=== PATIENT | female | born 1980 | race Caucasian/White ===

== ENCOUNTER 2019-11-01 08:16 | Day surgery (SDC) | payer BC ==
[2019-10-23 11:57] LABS: BASOPHILS # (AUTO) 0.1 X10'3 (0-0.2); EOSINOPHILS # (AUTO) 0.4 X10'3 (0-0.9); EOSINOPHILS % (AUTO) 6.6 % (0-6); LYMPHOCYTES # (AUTO) 1.8 X10'3 (1.1-4.8); LYMPHOCYTES % (AUTO) 31.8 % (21-51); MEAN CORPUSCULAR HEMOGLOBIN 32.1 PG (27.0-31.0); MEAN CORPUSCULAR HGB CONC 34.4 g/dL (33.0-36.5); MEAN CORPUSCULAR VOLUME 93.3 FL (78-98); MEAN PLATELET VOLUME 9.6 FL (7.4-10.4); MONOCYTES # (AUTO) 0.5 X10'3 (0-0.9); MONOCYTES % (AUTO) 9.5 % (2-12); NEUTROPHILS # (AUTO) 2.8 X10'3 (1.8-7.7); NEUTROPHILS % (AUTO) 51.1 % (42-75); PRE OP HEMATOCRIT 42.5 % (35.0-45.0); PRE OP HEMOGLOBIN 14.6 g/dL (12.0-16.0); PRE OP PLATELET COUNT 253 X10'3 (140-440); RED BLOOD COUNT 4.55 X10'6 (4.20-5.60); RED CELL DISTRIBUTION WIDTH 13.1 % (11.5-14.5)
[2019-10-23 12:05] LABS: ALBUMIN 3.6 G/DL (3.4-5.0); ALKALINE PHOSPHATASE 60 IU/L (46-116); BLOOD UREA NITROGEN 8 MG/DL (7-18); BUN/CREATININE RATIO 8.8 (6.6-38.0); CALCIUM 8.2 MG/DL (8.5-10.1); CHLORIDE 102 MMOL/L (99-107); CREATININE 0.91 MG/DL (0.40-0.90); PRE OP ALT 19 U/L (30-65); PRE OP ANION GAP 5 (8-16); PRE OP AST 15 U/L (10-37); PRE OP BILIRUB, TOTAL 0.9 MG/DL (0.0-1.0); PRE OP POTASSIUM 4.2 MMOL/L (3.4-5.1); PRE OP SODIUM 135 MMOL/L (135-145); TOTAL CARBON DIOXIDE 27.8 MMOL/L (24-32); TOTAL PROTEIN 7.2 G/DL (6.4-8.2); eGFR 69 ML/MIN
[2019-10-23 13:11] LABS: PRE OP GLUCOSE 498 MG/DL (70-104)
[~2019-11-01] VITALS: Ht 166.4 cm; Wt 68.0 kg
[2019-11-01] VITALS (7 sets, daily range): BP systolic 111–136; BP diastolic 67–86
[~2019-11-01 08:16] MED LIST: [UNRECOGNIZED DRUG - OTHER]; ceFOXitin sod/dextrose 2g/50ml 50 ML IV ONE; famotidine 10mg tablet PO ONE; ringers solution, lacted 1,000 ML IV SCH
[2019-11-01] MEDS ORDERED: ferric subsulfate solution/paste 1 APPLIC SOL.W.APPL TP ONE (09:31)
[2019-11-01] MEDS ORDERED: ringers solution, lacted 1,000 ML IV SCH (10:07)
[2019-11-01] MEDS ORDERED: ketorolac trometh. 30mg/ml inj. IV ONE (10:10)
[2019-11-01] MEDS ORDERED: ondansetron/PF 4mg/2ml inj IV PRN (10:10)
[2019-11-01] MEDS ORDERED: meperidine/PF 25mg/ml syringe IV PRN ×3 (10:10)
[2019-11-01] MEDS ORDERED: proCHLORperazine 10 MG/2 ml inj IV PRN (10:10)
[2019-11-01] MEDS ORDERED: sevoflurane 250ml liquid IH ONE (10:30)
[2019-11-01] MEDS ORDERED: midazolam 2 mg/2 ml injection ONE (10:40)
[2019-11-01] MEDS ORDERED: fentaNYL/PF 50MCG/1 ML 2ML syringe ONE (10:40)
[2019-11-01] MEDS ORDERED: propofol inj 20 ML IV ONE (10:41)
[2019-11-01] MEDS ORDERED: ondansetron/PF 4mg/2ml inj ONE (11:14)
--- NOTE | 2019-11-01 11:35 | NUR ---
Received from OR via [facility] , accompanied by Anesthesiologist JESSICA and report given by Anesthesiolgist. PATIENT WITH 20G PIV IN RIGHT UE RUNNING LR AT 100. DENIES PAIN AT THIS TIME. PATIENT WITH 10L MASK ON WITH 100% SATURATIONS. PATIENT WITH ANIBAL PAD THAT IS CDI. Addendum: 11/01/19 at 1146 by Cooper Garcia RN, RN Amended: Links added.
[2019-11-01] MEDS ORDERED: oxyCODONE/APAP 5-325mg tablet PO ONE (11:45)
[2019-11-01] MEDS ORDERED: oxyCODONE/APAP 5-325mg tablet PO PRN (11:45)
--- NOTE | 2019-11-01 12:35 | NUR ---
ALL DC CRITERIA HAS BEEN MET. IV TAKEN OUT WITHOUT COMPLICATIONS. ALL INSTRUCTIONS COVERED AND ALL QUESTIONS ANSWERED. DRESSINGS CDI. OUT VIA WHEELCHAIR TO PERSONAL VEHICLE WHERE PATIENT WAS SECURED IN AND DRIVEN HOME BY FAMILY. Addendum: 11/01/19 at 1242 by Cooper Garcia RN, RN Amended: Links added.
== END 2019-11-01 12:35 | disposition home or self-care (01) ==
LOC: PAS 08:16
PROVIDERS: ATTEND Obstetrics & Gynecology
DX: N92.0 Excessive and frequent menstruation with regular cycle (principal); D06.9 Carcinoma in situ of cervix, unspecified; F41.9 Anxiety disorder, unspecified; F32.9 Major depressive disorder, single episode, unspecified; G43.909 Migraine, unspecified, not intractable, without status migrainosus; E10.39 Type 1 diabetes mellitus with other diabetic ophthalmic complication; H42 Glaucoma in diseases classified elsewhere; E10.22 Type 1 diabetes mellitus with diabetic chronic kidney disease; N18.1 Chronic kidney disease, stage 1; Z88.5 Allergy status to narcotic agent; Z88.8 Allergy status to other drugs, medicaments and biological substances; Z98.51 Tubal ligation status; Z79.4 Long term (current) use of insulin; Z79.899 Other long term (current) drug therapy; F17.210 Nicotine dependence, cigarettes, uncomplicated; Z98.890 Other specified postprocedural states
CPT/HCPCS: 36415; 57522; 58563; 80053; 82948; 85025; 86885; 86900; 86901; A4264; J0694; J1885; J2175; J2250; J2405; J2704; J3010; J7030; A4355; A4618; A6258; A7000; J7120

== ENCOUNTER 2021-06-11 21:21 | Emergency (ER) | payer BC ==
[~2021-06-11] VITALS: Ht 167.6 cm; Wt 65.9 kg
[~2021-06-11 21:21] MED LIST changes: -ceFOXitin sod/dextrose 2g/50ml 50 ML IV ONE; -famotidine 10mg tablet PO ONE; -ringers solution, lacted 1,000 ML IV SCH
--- NOTE | 2021-06-11 22:25 | NUR ---
Patient has insulin pump and checks her own sugars. Declines Dextrose, is eating snack, states she does not feel symptomatic "until I am in the 30's"
[2021-06-11 22:29] LABS: BASOPHILS # (AUTO) 0.1 X10'3 (0-0.2); BASOPHILS % (AUTO) 1.1 % (0-1); EOSINOPHILS # (AUTO) 0.4 X10'3 (0-0.9); EOSINOPHILS % (AUTO) 5.3 % (0-6); HEMOGLOBIN 15.3 g/dl (12.0-16.0); LYMPHOCYTES # (AUTO) 3.5 X10'3 (1.1-4.8); LYMPHOCYTES % (AUTO) 42.9 % (21-51); MEAN CORPUSCULAR HEMOGLOBIN 32.6 PG (27.0-31.0); MEAN CORPUSCULAR HGB CONC 33.3 g/dL (33.0-36.5); MEAN CORPUSCULAR VOLUME 97.9 FL (78-98); MEAN PLATELET VOLUME 8.2 FL (7.4-10.4); MONOCYTES # (AUTO) 0.8 X10'3 (0-0.9); MONOCYTES % (AUTO) 9.3 % (2-12); NEUTROPHILS # (AUTO) 3.4 X10'3 (1.8-7.7); NEUTROPHILS % (AUTO) 41.4 % (42-75); PLATELET COUNT 278 X10'3 (140-440); RED CELL DISTRIBUTION WIDTH 13.8 % (11.5-14.5); WHITE BLOOD COUNT 8.2 X10'3 (4.5-11.0)
[2021-06-11 22:42] LABS: ANION GAP 8 (8-16); BLOOD UREA NITROGEN 9 MG/DL (7-18); BUN/CREATININE RATIO 10.6 (6.6-38.0); CALCIUM 8.7 MG/DL (8.5-10.1); CHLORIDE 110 MMOL/L (99-107); CREATININE 0.85 MG/DL (0.40-0.90); GLUCOSE 60 MG/DL (70-104); POTASSIUM 4.2 MMOL/L (3.5-5.1); SODIUM 145 MMOL/L (135-145); TOTAL CARBON DIOXIDE 27.2 MMOL/L (24-32); eGFR 74 ML/MIN
[2021-06-11 22:43] LABS: HCG SERUM QL POSITIVE
--- NOTE | 2021-06-11 22:55 | NUR ---
Teleneuro consult in process.
[2021-06-11] MEDS ORDERED: aspirin 81mg tab.chew PO ONE (23:05)
[2021-06-12] VITALS: BP 126/91
--- NOTE | 2021-06-12 00:05 | NUR ---
Patient declines interventions for blood glucose, has snacks and glucose monitor, no symptoms.
== END 2021-06-12 00:24 | disposition home or self-care (01) ==
LOC: ER 21:22
DX: O26.891 Other specified pregnancy related conditions, first trimester (principal); H51.0 Palsy (spasm) of conjugate gaze; E11.22 Type 2 diabetes mellitus with diabetic chronic kidney disease; N18.6 End stage renal disease; F17.210 Nicotine dependence, cigarettes, uncomplicated; Z88.5 Allergy status to narcotic agent; Z88.8 Allergy status to other drugs, medicaments and biological substances; Z79.899 Other long term (current) drug therapy
CPT/HCPCS: 36415; 70450; 80048; 82948; 84703; 85025; 85610; 99284